=== PATIENT | female | born 2000 | race Caucasian/White ===

== ENCOUNTER 2018-08-29 09:43 | Emergency (ER) | payer OTHER ==
[2018-08-29 10:01] VITALS: BP 128/76
--- NOTE | 2018-08-29 10:23 | UC ---
Throat Pain/Nasal Sebastian HPI - HPI Summary HPI Summary: PT PRESENTS WITH C/O SUDDEN ONSET OF ST, tonsilar swelling with exudate that began this morning. - History of Current Complaint Chief Complaint: UCRespiratory Stated Complaint: THROAT COMPLAINT Time Seen by Provider: 08/29/18 09:49 Hx Obtained From: Patient Hx Last Menstrual Period: 08/06/18 ?: No Onset/Duration: Sudden Onset, Lasting Hours, Still Present Pain Intensity: 5 Cough: None Associated Signs & Symptoms: Positive: Dysphagia - Epiglottits Risk Factors Epiglottis Risk Factors: Sudden Onset - Allergies/Home Medications Allergies/Adverse Reactions: Allergies Allergy/AdvReac Type Severity Reaction Status Date / Time No Known Allergies Allergy Verified 08/29/18 09:57 Home Medications: Home Medications Acetaminophen [Acetaminophen Extra Strength] 1,000 mg PO Q6H PRN 08/29/18 [ History Confirmed 08/29/18] PMH/Surg Hx/FS Hx/Imm Hx Previously Healthy: Yes - Surgical History Surgical History: None - Family History Known Family History: Positive: Cardiac Disease - Social History Occupation: Works From/At Home Lives: With Family Alcohol Use: None Substance Use Type: None Smoking Status (MU): Never Smoked Tobacco Have You Smoked in the Last Year: No - Immunization History Vaccination Up to Date: Yes Review of Systems All Other Systems Reviewed And Are Negative: Yes Constitutional: Positive: Negative Skin: Positive: Negative Eyes: Positive: Negative ENT: Positive: Sore Throat Respiratory: Positive: Negative Cardiovascular: Positive: Negative Gastrointestinal: Positive: Negative Genitourinary: Positive: Negative Motor: Positive: Negative Neurovascular: Positive: Negative Musculoskeletal: Positive: Negative Neurological: Positive: Negative Psychological: Positive: Negative Is Patient Immunocompromised?: No Physical Exam Triage Information Reviewed: Yes Appearance: Well-Appearing Vital Signs: Initial Vital Signs Temp 97.8 F 08/29/18 09:58 Pulse 86 08/29/18 09:58 Resp 16 08/29/18 09:58 BP 128/76 08/29/18 09:58 Pulse Ox 100 08/29/18 09:58 Vital Signs Reviewed: Yes Eye Exam: Normal ENT: Positive: Tonsillar swelling, Tonsillar exudate Dental Exam: Normal Neck exam: Normal Respiratory Exam: Normal Cardiovascular Exam: Normal Musculoskeletal Exam: Normal Neurological Exam: Normal Psychological Exam: Normal Skin Exam: Normal Throat Pain/Nasal Course/Dx - Differential Dx/Diagnosis Differential Diagnosis/HQI/PQRI: Mononucleosis, Pharyngitis, Tonsillitis Provider Diagnosis: Tonsillitis with exudate Discharge - Sign-Out/Discharge Documenting (check all that apply): Patient Departure All imaging exams completed and their final reports reviewed: No Studies - Discharge Plan Condition: Stable Disposition: HOME Patient Education Materials: Tonsillitis (ED), Safe Use of NSAIDs (ED) Referrals: [facility] [place] [facility] RE[facility]ERR[facility] [Outside] - If Needed No Primary Care Phys,NOPCP [Primary Care Provider] - Additional Instructions: PLEASE FOLLOW UP WITH YOUR PCP OR RETURN TO CLINIC NEEDED. IF SYMPTOMS DO NOT IMPROVE AND SIGNIFICANTLY WORSEN, PLEASE GO DIRECTLY TO THE CLOSEST EMERGENCY ROOM. - Billing Disposition and Condition Condition: STABLE Disposition: Home
== END 2018-08-29 10:31 | disposition home or self-care (01) ==
LOC: UCCORT 09:43
DX: J03.90 Acute tonsillitis, unspecified (principal)
CPT/HCPCS: 87651; 99201; G0463

== ENCOUNTER 2018-08-31 15:56 | Emergency (ER) | payer OTHER ==
[2018-08-31 16:13] VITALS: BP 109/57
--- NOTE | 2018-08-31 16:37 | UC ---
Throat Pain/Nasal Sebastian HPI - HPI Summary HPI Summary: Pt presents with c/o worening ST. Pt was seen here on 08/29/18 for c/o ST. Rapid strep was negative. Pt states throat pain is worsening as well as bilateral ear pain. States left side of throat is more painful than right Denies fever. - History of Current Complaint Chief Complaint: UCGeneralIllness Stated Complaint: RECHECK SORE THROAT Time Seen by Provider: 08/31/18 16:06 Hx Obtained From: Patient Hx Last Menstrual Period: 08/06/18 ?: No Onset/Duration: Gradual Onset, Lasting Days, Worse Since - onset Severity: Moderate Pain Intensity: 7 Cough: None Associated Signs & Symptoms: Positive: Dysphagia - Epiglottits Risk Factors Epiglottis Risk Factors: Negative - Allergies/Home Medications Allergies/Adverse Reactions: Allergies Allergy/AdvReac Type Severity Reaction Status Date / Time No Known Allergies Allergy Verified 08/31/18 16:13 PMH/Surg Hx/FS Hx/Imm Hx Previously Healthy: Yes - Surgical History Surgical History: None - Family History Known Family History: Positive: Cardiac Disease - Social History Occupation: Student Lives: With Family Alcohol Use: None Substance Use Type: None Smoking Status (MU): Never Smoked Tobacco Have You Smoked in the Last Year: No - Immunization History Vaccination Up to Date: Yes Review of Systems All Other Systems Reviewed And Are Negative: Yes Constitutional: Positive: Fatigue Skin: Positive: Negative Eyes: Positive: Negative ENT: Positive: Sore Throat Respiratory: Positive: Negative Cardiovascular: Positive: Negative Gastrointestinal: Positive: Negative Genitourinary: Positive: Negative Motor: Positive: Negative Neurovascular: Positive: Negative Musculoskeletal: Positive: Negative Neurological: Positive: Negative Psychological: Positive: Negative Is Patient Immunocompromised?: No Physical Exam Triage Information Reviewed: Yes Appearance: Well-Appearing Vital Signs: Initial Vital Signs Temp 98.4 F 08/31/18 16:07 Pulse 97 08/31/18 16:07 Resp 16 08/31/18 16:07 BP 109/57 08/31/18 16:07 Pulse Ox 100 08/31/18 16:07 Vital Signs Reviewed: Yes Eye Exam: Normal ENT: Positive: Tonsillar swelling - left more than right, Tonsillar exudate Dental Exam: Normal Neck: Positive: Enlarged Nodes @ - left submandibular, Respiratory Exam: Normal Cardiovascular Exam: Normal Musculoskeletal Exam: Normal Neurological Exam: Normal Psychological Exam: Normal Skin Exam: Normal Throat Pain/Nasal Course/Dx - Course Course Of Treatment: I discussed the need to establish care with a PCP and to follow up with an ENT provider as soon as possible. I also discussed that if symptoms worsen, to go directly to the closest ER. I discussed my concern for [place] and for peritonsillar abscess and pt verbalized understanding and agreed to plan of care. - Differential Dx/Diagnosis Differential Diagnosis/HQI/PQRI: Peritonsillar Abscess, Tonsillitis Provider Diagnosis: Tonsillitis with exudate Discharge - Sign-Out/Discharge Documenting (check all that apply): Patient Departure All imaging exams completed and their final reports reviewed: No Studies - Discharge Plan Condition: Stable Disposition: HOME Prescriptions: Penicillin VK 500 MG TAB(NF) [Penicillin VK 500 mg Tab] 500 mg PO Q8H #30 tab Patient Education Materials: Tonsillitis (ED) Referrals: [facility] [place] [facility]ERR[facility] [Outside] - As Soon As Possible Heriberto Felipe MD [Medical Doctor] - As Soon As Possible No Primary Care Phys,NOPCP [Primary Care Provider] - Additional Instructions: Please establish care with a PCP as soon as possible. We are recommending that you follow up with an ENT specialist as well. - Billing Disposition and Condition Condition: STABLE Disposition: Home
[2018-09-01 11:31] LABS: ABS Basophils 0.1 10^3/ul (0-0.2); ABS Eosinophils 0.1 10^3/ul (0-0.6); ABS Lymphocytes 1.7 10^3/ul (1.0-4.8); ABS Monocytes 0.9 10^3/ul (0-0.8); ABS Neutrophils 9.7 10^3/ul (1.5-7.7); Eosinophil % 0.5 %; Hematocrit 43 % (35-47); Hemoglobin 14.4 g/dL (12.0-16.0); Lymphocyte % 13.9 %; Mean Corpuscular HGB Conc 34 g/dL (31-36); Mean Corpuscular Hemoglobin 31 pg (27-31); Mean Corpuscular Volume 92 fL (80-97); Nucleated Red Blood Cells % 0.1; Platelet Count 274 10^3/uL (150-450); Red Blood Count 4.66 10^6 /uL (3.70-4.87); Red Cell Distribution Width 12 % (10.5-15); White Blood Count 12.5 10^3/uL (3.5-10.8)
--- NOTE | 2018-09-02 07:12 | UC ---
- Progress Note Progress Note: cbc - slight increase wbc, no bands neg mono no change jessi 09/02/18 Course/Dx - Diagnoses Provider Diagnoses: Tonsillitis with exudate Discharge - Sign-Out/Discharge Documenting (check all that apply): Post-Discharge Follow Up All imaging exams completed and their final reports reviewed: No Studies - Discharge Plan Condition: Stable Disposition: HOME Prescriptions: Magic Mouth Was-ALEISHA/MAAL/LIDO* 5 ml SWISH SWAL QID PRN #80 ml PRN Reason: Pain Penicillin VK 500 MG TAB(NF) [Penicillin VK 500 mg Tab] 500 mg PO Q8H #30 tab predniSONE TAB* [Deltasone 10 MG TAB*] 40 mg PO DAILY #14 tab Patient Education Materials: Tonsillitis (ED) Referrals: [facility] [place] [facility] REF[facility] [Outside] - As Soon As Possible Heriberto Felipe MD [Medical Doctor] - As Soon As Possible No Primary Care Phys,NOPCP [Primary Care Provider] - Additional Instructions: Please establish care with a PCP as soon as possible. We are recommending that you follow up with an ENT specialist as well. - Billing Disposition and Condition Condition: STABLE Disposition: Home
== END 2018-08-31 16:43 | disposition home or self-care (01) ==
LOC: UCCORT 15:56
DX: J03.90 Acute tonsillitis, unspecified (principal); H92.03 Otalgia, bilateral
CPT/HCPCS: 36415; 85025; 86308; 99212; G0463

== ENCOUNTER 2018-09-26 09:06 | Emergency (ER) | payer OTHER ==
[2018-09-26 10:03] VITALS: BP 113/70
--- NOTE | 2018-09-26 10:08 | UC ---
Complaint Female HPI - HPI Summary HPI Summary: 17 yo female with dysuria as well as vaginal d/c and itch x 2 days she was recently on antibiotics for tonsillitis she has had yeast infections in the past asn does not desire a pelvic exam - History Of Current Complaint Chief Complaint: UCGU Stated Complaint: URINARY Time Seen by Provider: 09/26/18 10:00 Hx Obtained From: Patient Hx Last Menstrual Period: 09/06/18 Onset/Duration: Gradual Onset, Lasting Days Timing: Constant Severity Initially: Mild Pain Intensity: 3 Pain Scale Used: 0-10 Numeric Character: Burning Aggravating Factor(s): Urination Associated Signs And Symptoms: Positive: Vaginal Discharge Related Hx: Similar Episode/Dx as: - yeast vaginitis Female Torso: 1 - suprpubic pressure - Allergies/Home Medications Allergies/Adverse Reactions: Allergies Allergy/AdvReac Type Severity Reaction Status Date / Time No Known Allergies Allergy Verified 09/26/18 09:58 PMH/Surg Hx/FS Hx/Imm Hx Previously Healthy: Yes - Surgical History Surgical History: None - Family History Known Family History: Positive: Cardiac Disease - Social History Alcohol Use: None Substance Use Type: None Smoking Status (MU): Never Smoked Tobacco Have You Smoked in the Last Year: No - Immunization History Vaccination Up to Date: Yes Review of Systems All Other Systems Reviewed And Are Negative: Yes Constitutional: Positive: Negative Skin: Positive: Negative Eyes: Positive: Negative ENT: Positive: Negative Respiratory: Positive: Negative Cardiovascular: Positive: Negative Gastrointestinal: Positive: Negative Genitourinary: Positive: Dysuria, Vaginal/Penile Itching, Vaginal/Penile Discharge Motor: Positive: Negative Neurovascular: Positive: Negative Musculoskeletal: Positive: Negative Neurological: Positive: Negative Psychological: Positive: Negative Physical Exam Vital Signs: Initial Vital Signs Temp 98.9 F 09/26/18 09:58 Pulse 87 09/26/18 09:58 Resp 15 09/26/18 09:58 BP 113/70 09/26/18 09:58 Pulse Ox 100 09/26/18 09:58 Diagnostics - Laboratory Lab Results: UA-tr leuks Complaint Female Dx - Differential Dx/Diagnosis Provider Diagnosis: Vaginitis, Dysuria Discharge - Sign-Out/Discharge Documenting (check all that apply): Patient Departure All imaging exams completed and their final reports reviewed: No Studies - Discharge Plan Condition: Stable Disposition: HOME Prescriptions: Fluconazole 150 MG (NF) [Diflucan 150 mg (NF)] 150 mg PO ONCE #1 tab Patient Education Materials: Vaginitis (ED) Referrals: No Primary Care Phys,NOPCP [Primary Care Provider] - Additional Instructions: I suspect a vaginal yeast infection take diflucan a urine culture is pending recheck for new or worsening symptoms or if not better in 3-4 days - Billing Disposition and Condition Condition: STABLE Disposition: Home
== END 2018-09-26 10:28 | disposition home or self-care (01) ==
LOC: UCCORT 09:06
DX: N76.0 Acute vaginitis (principal); R30.0 Dysuria
CPT/HCPCS: 81003; 84702; 87086; 99212; G0463

== ENCOUNTER 2019-01-30 18:52 | Emergency (ER) | payer OTHER ==
[2019-01-30 19:18] VITALS: BP 114/69
--- NOTE | 2019-01-30 19:25 | UC ---
Complaint Female HPI - HPI Summary HPI Summary: 18 yo with about a one week hx of vaginal discharge, improved with use of otc monistat. Symptoms recurred after a few days with fishy odor, but no dysuria or frequency. She had suprapubic pressure about a week ago. 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 - History Of Current Complaint Chief Complaint: UCGU Stated Complaint: URINARY Time Seen by Provider: 01/30/19 19:19 Hx Obtained From: Patient Hx Last Menstrual Period: 01/09/19 Onset/Duration: Gradual Onset, Lasting Days - 6-7 Timing: Intermittent Severity Initially: Mild Severity Currently: Mild Pain Intensity: 0 Character: Not Applicable Aggravating Factor(s): Nothing Alleviating Factor(s): Nothing Associated Signs And Symptoms: Positive: Vaginal Discharge. Negative: Fever, Back Pain, Nausea, Vomiting(# Of Episodes =) - Risk Factors Ectopic Risk Factor: Negative Ovarian Torsion Risk Factor: Negative - Allergies/Home Medications Allergies/Adverse Reactions: Allergies Allergy/AdvReac Type Severity Reaction Status Date / Time No Known Allergies Allergy Verified 01/30/19 19:11 PMH/Surg Hx/FS Hx/Imm Hx Previously Healthy: Yes - Surgical History Surgical History: None - Family History Known Family History: Positive: Cardiac Disease, Diabetes - Social History Occupation: Employed Full-time Lives: With Family Alcohol Use: None Substance Use Type: None Smoking Status (MU): Never Smoked Tobacco Have You Smoked in the Last Year: No - Immunization History Vaccination Up to Date: Yes Review of Systems All Other Systems Reviewed And Are Negative: Yes Constitutional: Positive: Negative Skin: Positive: Negative Eyes: Positive: Negative ENT: Positive: Negative Respiratory: Positive: Negative Cardiovascular: Positive: Negative Gastrointestinal: Positive: Negative Genitourinary: Positive: Vaginal/Penile Discharge. Negative: Dysuria, Hematuria , Frequency, Urgency Motor: Positive: Negative Neurovascular: Positive: Negative Musculoskeletal: Positive: Negative Neurological: Positive: Negative Psychological: Positive: Negative Is Patient Immunocompromised?: No Physical Exam Triage Information Reviewed: Yes Appearance: Well-Appearing, No Pain Distress, Obese Vital Signs: Initial Vital Signs Temp 98.4 F 01/30/19 19:12 Pulse 102 01/30/19 19:12 Resp 17 01/30/19 19:12 BP 114/69 01/30/19 19:12 Pulse Ox 100 01/30/19 19:12 ENT: Positive: Pharynx normal Neck: Positive: Supple, Nontender, No Lymphadenopathy Respiratory: Positive: Lungs clear, Normal breath sounds Cardiovascular: Positive: RRR, No Murmur Abdomen Description: Positive: Nontender, No Organomegaly, Soft Psychological Exam: Normal Skin Exam: Normal Diagnostics - Laboratory Lab Results: UA with protein and ketones, not suggestive of infection Complaint Female Dx - Course Course Of Treatment: Suspect bacterial vaginosis, and she would like to begin treatment. - Differential Dx/Diagnosis Differential Diagnosis/HQI/PQRI: Urinary Tract Infection, Other - bacterial vaginosis or vaginitis. Provider Diagnosis: Bacterial vaginosis Discharge ED - Sign-Out/Discharge Documenting (check all that apply): Patient Departure All imaging exams completed and their final reports reviewed: No Studies - Discharge Plan Condition: Good Disposition: HOME Prescriptions: metroNIDAZOLE [Flagyl] 500 mg PO BID #14 tablet Patient Education Materials: Bacterial Vaginosis (ED) Referrals: No Primary Care Phys,NOPCP [Primary Care Provider] - Additional Instructions: Begin use of metronidazole, and you will be called if there is a recommended change in treatment based on the result of the swab. Increase probiotic foods to help to decrease the risk of vaginal infections. - Billing Disposition and Condition Condition: GOOD Disposition: Home
== END 2019-01-30 19:56 | disposition home or self-care (01) ==
LOC: UCCORT 18:52
DX: N76.0 Acute vaginitis (principal); N89.8 Other specified noninflammatory disorders of vagina
CPT/HCPCS: 81003; 87480; 87510; 87660; 99212; G0463